=== PATIENT | female | born 1990 | race Two or more races ===

== ENCOUNTER 2025-01-12 16:32 | Emergency (ER) | payer SELFPAY ==
[~2025-01-12] VITALS: Ht 160 cm; Wt 52.4 kg
[2025-01-12] MEDS: LORazepam 2MG/ML-1ML VIAL IV ONE (16:44)
[2025-01-12] MEDS: LORazepam 2MG/ML-1ML VIAL ONE (16:44)
--- NOTE | 2025-01-12 17:50 | ED.PDOC ---
HPI (NEURO) HPI Comments This is a 34 year old female SANDRAA presenting to the ED with chief complaint of seizures. EMS reports that the patient's cat had been attacked by a dog earlier BUTTER MELTER in the ED and the patient kicked the dog away. EMS relays that the patient was then bitten by her cat on the hand and suddenly began to have a seizure. EMS states patient then had another 2 seizures in the ED. Patient is now A/O x4 at this time. Patient takes 1g of Keppra daily. Patient denies any chest pain, SOB, dizziness, N/V/D, or headache. Chief Complaint: Seizure Time Seen by MD: 17:00 Reviewed Notes: Nurses Notes, Dyeing Machine Tender Notes, Medications, Allergies Information Source: Patient, Emergency Med Personnel Mode of Arrival: EMS Severity: Moderate Timing: Hours Duration: Minutes Prehospital treatment: None Seizure Quality: Tonic-clonic Seizure Location: Generalized Onset: With light exertion Circumstances: Spontaneous, Recent stress History of: Seizure Disorder Past Medical History PAST MEDICAL HISTORY: Seizures Surgical History: Denies all surgeries COMPUTER SUPPORT SPECIALIST History: Denies all COMPUTER SUPPORT SPECIALIST Hx Family History Family History: Reviewed,noncontributory to illness Social History Lives In: Home Constitutional: denies: chills, diaphoresis, fatigue, fever, malaise, sweats, weakness, others EENTM: denies: blurred vision, double vision, ear bleeding, ear discharge, ear drainage, ear pain, ear ringing, eye pain, eye redness, hearing loss, mouth pain, mouth swelling, nasal discharge, nose bleeding, nose congestion, nose pain, photophobia, tearing, throat pain, throat swelling, voice changes, others Respiratory: denies: cough, hemoptysis, orthopnea, SOB at rest, shortness of breath, SOB with excertion, stridor, wheezing, others Cardiovascular: denies: chest pain, dizzy spells, diaphoresis, Dyspnea on exertion, edema, irregular heart beat, left arm pain, lightheadedness, palpitations, PND, syncope, others Gastrointestinal: denies: abdomen distended, abdominal pain, blood streaked bowels, constipated, diarrhea, dysphagia, difficulty swallowing, hematemesis, melena, nausea, poor appetite, poor fluid intake, rectal bleeding, rectal pain, vomiting, others Genitourinary: denies: abnormal vagina bleeding, burning, dyspareunia, dysuria, flank pain, frequency, hematuria, incontinence, pain, , vagina discharge, urgency, others Neurological: reports: seizure; denies: dizziness, fainting, headache, left si ded numbness, left sided weakness, numbness, paresthesia, pre-existing deficit, right sided numbness, right sided weakness, speech problems, tingling, tremors, weakness, others Musculoskeletal: denies: back pain, gout, joint pain, joint swelling, muscle pain, muscle stiffness, neck pain, others Integumetry: denies: bruises, change in color, change in hair/nails, dryness, laceration, lesions, lumps, rash, wounds, others Allergic/Immunocompromised: denies: Difficulty Healing, Frequent Infections, Hives, Itching, others Hematologic/Lymphatic: denies: anemia, blood clots, easy bleeding, easy bruising, swollen glands, others Endocrine: denies: excessive hunger, excessive sweating, excessive thirst, excessive urination, flushing, intolerance to cold, intolerance to heat, unexplained weight gain, unexplained weight loss, others Psychiatric: denies: anxiety, bipolar disorder, depression, hopeless, panic disorder, schizophrenia, sleepless, suicidal, others All Other Systems: Reviewed and Negative Physical Exam General Appearance: No Apparent Distress, Normal HEENT: Normal ENT Inspection, Pharynx Normal, TMs Normal Neck: Full Range of Motion, Non-Tender, Normal, Normal Inspection Respiratory: Chest Non-Tender, Lungs Clear, No Accessory Muscle Use, No Respiratory Distress, Normal Breath Sounds Cardiovascular: No Edema, No JVD, No Murmur, No Gallop, Normal Peripheral Pulses, Regular Rate/Rhythm Breast Exam: Deferred Gastrointestinal: No Organomegaly, Non Tender, No Pulsatile Mass, Normal Bowel Sounds, Soft Genitalia: Deferred Pelvic: Deferred Rectal: Deferred Extremities: No calf tenderness, Normal capillary refill, Normal inspection, Normal range of motion, Non-tender, No pedal edema Musculoskeletal : Apperance: Normal Neurologic: Alert, 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 Was a procedure done?: No Differential Diagnosis (SZ) Seizure: Idiopathic, Epilepsy-Break Through CVA: Hypoglycemia General Weakness: N/A Headache: N/A X-Ray, Labs, Meds, VS Vital Signs Date Time Temp Pulse Resp B/P (MAP) Pulse Ox O2 Delivery O2 Flow Rate FiO2 01/12/25 16:50 87 01/12/25 16:44 98.8 100 14 117/80 98 98.8 Current Medications Medications (Trade) Dose Ordered Sig/Abigail Route Start Time Stop Time Status Last Admin Lorazepam (Ativan Inj) 2 mg ONCE ONCE IV 01/12/25 16:45 01/12/25 16:46 DC 01/12/25 16:44 Time of 1ST Reevaluation: 18:00 Reevaluation 1ST: Unchanged Patient Education/Counseling: Diagnosis, Treatment Family Education/Counseling: No Family Present Departure 1 Departure Time of Disposition: 19:27 (Patient had a breakthrough seizure kappa. We will prescribe patient medication for the cat bite. Patient will continue to take her antiepileptics and follow up with the regular doctor.) Impression: Primary Impression: Breakthrough seizure Additional Impression: Cat bite Qualified Codes: W55.01XA - Bitten by cat, initial encounter Disposition: HOME / SELF CARE / HOMELESS Condition: Stable Additional Instructions: You had a breakthrough seizure today. It is important to take your seizure medication. You should stay well rested and well hydrated. You also had a cat bite. You were prescribed antibiotics. Please take as directed. You should follow up with your regular doctor within 1 week. If your symptoms worsen or you have any other concerns then please return to the emergency room. e-Prescriptions Amoxicillin & Pot Clavulanate (AUGMENTIN TABLET) 875 Mg Tb 875 MG PO BID for 5 Days, #10 TAB Prov: LUKASZ NASSAR MD 01/12/25 Discharged With: Self Critical Care Note Critical Care Time?: No Stability Stability form required: No Heart Score Heart Score: Heart Score Response (Comments) Value History N/A 0 EKG N/A 0 Age N/A 0 Risk Factors N/A 0 Troponin N/A 0 Total 0 I personally scribed for LUKASZ NASSAR MD ([email or web address]) on 01/12/25 at 17:50. Electronically submitted by [place] ([email or web address]). LUKASZ NASSAR MD Jan 12, 2025 17:50
--- NOTE | 2025-01-12 18:49 | ECG ---
[facility] Test Date: 2025-01-12 Test Time: 16:47:26 Pat Name: BEREKET DAVISON Department: Room: Gender: F Behavioral Health Counselor: INDU : 1990 Requested By: LUKASZ NASSAR Order Number: [id number] Reading MD: Lukas Lyman Measurements Intervals [place] Rate: 87 P: 54 NH: 120 QRS: 46 QRSD: 104 T: 51 QT: 359 QTc: 432 Interpretive Statements Sinus rhythm Multiple premature complexes, vent & supraven Low voltage, precordial leads Borderline T abnormalities, anterior leads Electronically Signed On 01-16-2025 10:21:33 PDT by Lukas Lyman Please click the below link to view image of tracing.
[2025-01-12 19:00] VITALS: PULSE 85; RESP 9; TEMP 97.9; O2SAT 96
[2025-01-12] MEDS ORDERED: AUG875T PO (19:28)
[2025-01-12] MEDS: AMOXICILLIN/CLAVUL 875 MG TAB PO ONE (19:45)
[2025-01-12] MEDS: levETIRAcetam 1000 mg/100ml 200 ML IV ONE (19:46)
[2025-01-12 22:25] VITALS: BP 106/76; PULSE 91; RESP 18; O2SAT 98
== END 2025-01-12 22:26 | disposition home or self-care (01) ==
LOC: EDBD 16:32 → ER 16:32
DX: G40.909 Epilepsy, unspecified, not intractable, without status epilepticus (principal); Z79.899 Other long term (current) drug therapy; W55.01XA Bitten by cat, initial encounter; Y93.89 Activity, other specified; Y92.89 Other specified places as the place of occurrence of the external cause; Y99.8 Other external cause status
CPT/HCPCS: 93005; 96365; 96375; 99284; J1953; J2060